=== PATIENT | female | born 1985 | race Caucasian/White ===

== ENCOUNTER 2020-03-12 10:30 | Inpatient (IN) ==
[2020-03-12] MEDS ORDERED: Famotidine 20 MG/2 ML VIAL IVP ONE (10:46)
[2020-03-12] MEDS ORDERED: Oxytocin 20 units/ LR 1000 mL 20 UNIT/1,000 ML BAG IVC ONE (10:46)
[2020-03-12] MEDS ORDERED: Metoclopramide 10 MG/2 ML VIAL IVP ONE (10:46)
[2020-03-12] MEDS ORDERED: CeFAZolin 2,000 MG/50 ML BAG IVPB ONE (10:46)
[2020-03-12] MEDS ORDERED: Ringers Solution, Lactated 1,000 ML IVC ONE (10:46)
[2020-03-12] MEDS ORDERED: Ringers Solution, Lactated 1,000 ML IVC SCH (11:00)
[2020-03-12] MEDS ORDERED: *HR* FentaNYL (PF) 100 MCG/2 ML VIAL ONE (11:32)
[2020-03-12] MEDS ORDERED: *HR* Morphine Sulfate/PF 10 MG/10 ML AMPUL ONE (11:32)
[2020-03-12 11:38] LABS: Basophils # 0.1 K/mcL (0.0-0.2); Basophils % 0.6 %; Eosinophils # 0.1 K/mcL (0.0-0.6); Eosinophils % 0.6 %; Hematocrit 42.8 % (35.3-44.9); Hemoglobin 14.5 g/dL (11.5-15.4); Immature Granulocytes % 2.2 % (0-4); Lymphocytes # 2.4 K/mcL (0.6-4.6); Lymphocytes % 16.9 %; Mean Corpuscular HGB Conc 33.9 g/dL (31.6-35.5); Mean Corpuscular Hemoglobin 32.9 pg (28.0-33.3); Mean Corpuscular Volume 97.1 fL (83.0-100.0); Mean Platelet Volume 10.8 fL (9.4-12.4); Monocytes # 1.4 K/mcL (0.0-1.3); Monocytes % 9.7 %; Platelet Count 210 K/mcL (140-400); Red Blood Count 4.41 M/mcL (3.82-4.97); Red Cell Distribution Width 13.7 % (11.5-14.5); White Blood Count 14.3 K/mcL (4.3-11.1)
[2020-03-12] MEDS ORDERED: *HR* Oxytocin 10 UNIT/ML VIAL IM ONE (12:23)
[2020-03-12] MEDS ORDERED: Ringers Solution, Lactated 1,000 ML ONE (12:23)
[2020-03-12] MEDS ORDERED: Ketorolac 30 MG/ML VIAL ONE (12:33)
[2020-03-12] MEDS ORDERED: Acetaminophen IV 1,000 MG/100 ML BAG IVPB ONE (12:34)
[2020-03-12] MEDS ORDERED: Naloxone 0.4 MG/ML INJ IVP PRN ×2 (12:35→15:03)
[2020-03-12] MEDS ORDERED: *HR* FentaNYL (PF) 100 MCG/2 ML VIAL IVP PRN (12:35)
[2020-03-12] MEDS ORDERED: Ondansetron 4 MG/2 ML VIAL IVP PRN ×2 (12:35→15:03)
[2020-03-12] MEDS ORDERED: *HR* Meperidine 25 MG/ML SYRINGE IVP PRN (12:35)
[2020-03-12 12:44] LABS: Adenovirus Not Detected (Not Detect); Bordetella Pertussis Not Detected (Not Detect); Chlamydophila pneumoniae Not Detected (Not Detect); Coronavirus 229E Not Detected (Not Detect); Coronavirus HKU1 Not Detected (Not Detect); Coronavirus NL63 Not Detected (Not Detect); Coronavirus OC43 Not Detected (Not Detect); Human Metapneumovirus Not Detected (Not Detect); Human Rhinovirus/Enterovirus Not Detected (Not Detect); Influenza A Subtype 2009 H1 Not Detected (Not Detect); Influenza B Not Detected (Not Detect); Mycoplasma pneumoniae Not Detected (Not Detect); Parainfluenza Virus 1 Not Detected (Not Detect); Parainfluenza Virus 2 Not Detected (Not Detect); Parainfluenza Virus 3 Not Detected (Not Detect); Parainfluenza Virus 4 Not Detected (Not Detect); Respiratory Syncytial Virus Not Detected (Not Detect); SARS-CoV-2 Not Detected (Not Detect)
[2020-03-12] MEDS ORDERED: Metoclopramide 10 MG/2 ML VIAL IVP PRN (15:03)
[2020-03-12] MEDS ORDERED: Simethicone 80 MG TAB.CHEW PO PRN (15:03)
[2020-03-12] MEDS ORDERED: Rho Immune Globulin 1,500 UNIT SYRINGE IM ONE (15:03)
[2020-03-12] MEDS ORDERED: Acetaminophen 325 MG TABLET PO PRN (15:03)
[2020-03-12] MEDS ORDERED: Oxytocin 20 units/ LR 1000 mL 20 UNIT/1,000 ML BAG IVC SCH (15:03)
[2020-03-12] MEDS ORDERED: Sennosides 8.6 MG TABLET PO PRN (15:03)
[2020-03-12] MEDS: Ibuprofen 600 MG TABLET PO PRN (15:27)
[2020-03-12] MEDS: *HR* OxyCODONE/APAP 5/325 TABLET PO PRN (20:09)
[2020-03-13] MEDS: *HR* OxyCODONE/APAP 5/325 TABLET PO PRN ×5 (00:29→20:45)
[2020-03-13] MEDS: Ibuprofen 600 MG TABLET PO PRN ×3 (00:30→15:08)
[2020-03-13 06:02] LABS: Basophils % 0.3 %; Eosinophils # 0.1 K/mcL (0.0-0.6); Eosinophils % 0.9 %; Immature Granulocytes % 1.7 % (0-4); Lymphocytes # 2.1 K/mcL (0.6-4.6); Lymphocytes % 18.5 %; Mean Corpuscular HGB Conc 34.7 g/dL (31.6-35.5); Mean Corpuscular Hemoglobin 33.1 pg (28.0-33.3); Mean Corpuscular Volume 95.5 fL (83.0-100.0); Mean Platelet Volume 10.8 fL (9.4-12.4); Monocytes # 1.3 K/mcL (0.0-1.3); Monocytes % 11.6 %; Neutrophils # 7.7 K/mcL (1.6-8.9); Platelet Count 147 K/mcL (140-400); Red Blood Count 3.56 M/mcL (3.82-4.97); Red Cell Distribution Width 13.7 % (11.5-14.5); White Blood Count 11.5 K/mcL (4.3-11.1)
[2020-03-13 06:05] LABS: Hemoglobin 11.8 g/dL (11.5-15.4)
[2020-03-13] MEDS: Prenatal Vit/FA 1 EACH TABLET PO SCH (08:25)
[2020-03-13] MEDS ORDERED: Rho Immune Globulin 1,500 UNIT SYRINGE IM ONE (15:15)
[2020-03-13] MEDS ORDERED: Ondansetron ODT 4 MG TAB.RAPDIS SL ONE (23:53)
[2020-03-14] MEDS: *HR* OxyCODONE/APAP 5/325 TABLET PO PRN ×3 (01:38→09:58)
[2020-03-14] MEDS: Prenatal Vit/FA 1 EACH TABLET PO SCH (07:45)
[2020-03-14] MEDS: Ibuprofen 600 MG TABLET PO PRN (07:46)
[2020-03-14 07:56] VITALS: BP 133/90
== END 2020-03-14 11:50 | disposition home or self-care (01) | DRG 540 ==
LOC: 1NENULAB 10:30 → 1NENUOBS 15:02
PROVIDERS: ADMIT Obstetrics & Gynecology; ATTEND Obstetrics & Gynecology